=== PATIENT | male | born 1980 | race Caucasian/White ===

== ENCOUNTER 2021-02-18 19:48 | Inpatient (IN) | payer SELFPAY ==
[~2021-02-18] VITALS: Ht 182.9 cm; Wt 87.5 kg
--- NOTE | 2021-02-18 19:50 | NUR ---
BIBRA 120 FOR L HIP AND L HAND/ WRIST PAIN S/P FALL FROM SCOOTER. -KO. MULTIPLE ABRASIONS ON BUE, BLE AND SCALP. TDAP NOT UP TO DATE , pt [id number], denies any sob/cp vss ,pending er provider ollie
[2021-02-18] MEDS ORDERED: TDAP [DIPH/PERTUSSIS/TET] 0.5 ML VIAL IM ONE ×2 (20:25→20:30)
[2021-02-18] MEDS ORDERED: TRAMADOL HCL 50 MG TABLET ONE (20:25)
[2021-02-18] MEDS ORDERED: TRAMADOL HCL 50 MG TABLET PO ONE (20:30)
[2021-02-18] MEDS ORDERED: BACI30OI9 TP (20:53)
[2021-02-18] MEDS ORDERED: IBUP-1955 PO (20:53)
[2021-02-18] MEDS ORDERED: TRAM50TA2 PO (20:53)
[2021-02-18] MEDS ORDERED: HYDROMORPHONE 1 MG/1 ML DISP.SYRIN IV ONE ×2 (21:00→23:00)
[2021-02-18] MEDS ORDERED: ONDANSETRON HCL/PF 4 MG/2 ML VIAL IV ONE (21:00)
[2021-02-18 21:15] LABS: BASOPHILS % (AUTO) 0.2 % (0.0-2.0); EOSINOPHILS % (AUTO) 0.2 % (0.0-6.0); HEMATOCRIT 43 % (39-51); HEMOGLOBIN 13.8 g/dL (13.5-17.5); LYMPHOCYTES # (AUTO) 1.3 K/uL (0.8-4.8); LYMPHOCYTES % (AUTO) 9.8 % (20.0-44.0); MEAN CORPUSCULAR HGB CONC 32 g/dl (31.0-36.0); MEAN CORPUSCULAR VOLUME 81 fL (80-96); MONOCYTES # (AUTO) 0.7 K/uL (0.1-1.30); MONOCYTES % (AUTO) 5.5 % (2.0-12.0); NEUTROPHILS % (AUTO) 84.3 % (43.0-81.0); PLATELET COUNT (AUTO) 272 K/uL (150-450); RED BLOOD CELL COUNT(AUTO) 5.36 MIL/uL (4.5-6.0); WHITE BLOOD COUNT (AUTO) 13.1 K/uL (4.3-11.0)
[2021-02-18] MEDS ORDERED: ONDANSETRON HCL/PF 4 MG/2 ML VIAL ONE (21:15)
[2021-02-18] MEDS ORDERED: HYDROMORPHONE 1 MG/1 ML DISP.SYRIN ONE ×4 (21:16→23:25)
[2021-02-18 21:25] LABS: CALCIUM, SERUM 9.1 mg/dL (8.5-10.1); CREATININE 1.2 mg/dL (0.6-1.3); POTASSIUM 3.6 mmol/L (3.5-5.1)
--- NOTE | 2021-02-18 21:28 | NUR ---
dilaudid 1mg cap broke and med spilled on floor. wasted dose with charge nurse
--- NOTE | 2021-02-18 22:04 | NUR ---
CALLED [facility], ALLIE SALTER SPEAKING WITH ALLIE ALCOCER
--- NOTE | 2021-02-18 22:14 | NUR ---
CALLED [facility], PAGED MOHSEN FOR ADMISSION
--- NOTE | 2021-02-18 22:15 | NUR ---
MOHSEN SPEAKING WITH ALLIE BUTLER
--- NOTE | 2021-02-18 22:16 | NUR ---
Ilya reyna in [facility] - 02/18/21 at 2216 by JIMBO BED [id number]
--- NOTE | 2021-02-18 22:50 | NUR ---
CALLED FOR REPORT. WILL CALL BACK
--- NOTE | 2021-02-18 23:22 | NUR ---
REPORT GIVEN TO SETH TORRES FOR MINERVA
[2021-02-18] MEDS ORDERED: HYDROMORPHONE INJ 2 MG/ML DISP.SYRIN IV ONE (23:30)
--- NOTE | 2021-02-18 23:30 | NUR ---
ROOM CHANGE TO 311-2
--- NOTE | 2021-02-18 23:57 | NUR ---
TRANSFERRED TO THIRD FLOOR IN STABLE CONDITION UNDER ACLS
[2021-02-19] VITALS: BP 127/73
[2021-02-19] MEDS ORDERED: MAG HYDROX/AL HYDROX/SIMETH 30 ML UDC PO PRN
[2021-02-19] MEDS ORDERED: MAGNESIUM HYDROXIDE 30 ML UDC PO PRN
[2021-02-19] MEDS ORDERED: Z GUARD REMEDY 2 OZ OINT TP PRN
[2021-02-19] MEDS ORDERED: ZOLPIDEM TARTRATE 5 MG TABLET PO PRN
[2021-02-19] MEDS ORDERED: ONDANSETRON HCL/PF 4 MG/2 ML VIAL IVP PRN
--- NOTE | 2021-02-19 00:07 | NUR ---
pt transported to 3rd floor
[2021-02-19] MEDS: IV D5/0.45 NACL 1,000 ML IV PRN ×2 (00:21→17:28)
--- NOTE | 2021-02-19 01:40 | NUR ---
MS/TELE/RN RECEIVED PATIENT AT 0000 FROM [facility]. PATIENT WAS VERY SLEEPY BUT COMFORTABLE, NO SIGNS OF DISTRESS NOTED. UNABLE TO OBTAIN ADMISSION ASSESSMENT PATIENT WAS VERY SLEEP AND DOES NOT ANSWER TO QUESTION, SOME INFORMATIONS WERE OBTAINED FROM PATIENT'S CHART. FALL PRECAUTIONS PER PROTOCOL INSTITUTED, WILL MONITOR.
[2021-02-19] MEDS: MORPHINE SULFATE INJ 2 MG/ML DISP.SYRIN IV PRN (02:43)
[2021-02-19] MEDS: HYDROMORPHONE 1 MG/1 ML DISP.SYRIN IV PRN ×3 (06:01→21:00)
[2021-02-19 06:53] LABS: BASOPHILS % (AUTO) 0.3 % (0.0-2.0); EOSINOPHILS % (AUTO) 0.1 % (0.0-6.0); HEMATOCRIT 40 % (39-51); HEMOGLOBIN 13.2 g/dL (13.5-17.5); LYMPHOCYTES # (AUTO) 1.7 K/uL (0.8-4.8); LYMPHOCYTES % (AUTO) 13.6 % (20.0-44.0); MEAN CORPUSCULAR HGB CONC 33 g/dl (31.0-36.0); MEAN CORPUSCULAR VOLUME 81 fL (80-96); MONOCYTES # (AUTO) 1.1 K/uL (0.1-1.30); MONOCYTES % (AUTO) 8.6 % (2.0-12.0); NEUTROPHILS # (AUTO) 9.9 K/uL (1.8-8.9); NEUTROPHILS % (AUTO) 77.4 % (43.0-81.0); PLATELET COUNT (AUTO) 229 K/uL (150-450); RED BLOOD CELL COUNT(AUTO) 5.01 MIL/uL (4.5-6.0); WHITE BLOOD COUNT (AUTO) 12.8 K/uL (4.3-11.0)
[2021-02-19 07:21] LABS: CALCIUM, SERUM 8.7 mg/dL (8.5-10.1); CREATININE 0.9 mg/dL (0.6-1.3); MAGNESIUM 2.1 mg/dL (1.8-2.4); PHOSPHORUS 4.2 mg/dL (2.5-4.9); POTASSIUM 3.9 mmol/L (3.5-5.1)
[2021-02-19] MEDS: PANTOPRAZOLE 40 MG TABLET.DR PO SCH (07:30)
--- NOTE | 2021-02-19 07:40 | NUR ---
MS/TELE/RN PATIENT IS AWAKE, COMFORTABLE, NO DISTRESS NOTED, ALL NEEDS ATTENDED AT THIS TIME, ENDORSED TO NEXT RN FOR MINERVA.
[2021-02-19 08:00] VITALS: BP 137/77
--- NOTE | 2021-02-19 10:00 | NUR ---
NPO THIS AM,VS STABLE.PLANS FOR SURGERY.HESITANT AT FIRST TO SIGN PAPERS,CALLING FRIEND FIRST.SURGEON IN TO TALK WITH PT. SEVERAL TIMES.
[2021-02-19] MEDS ORDERED: ANESTHESIA TRAY IN PYXIS 1 EA TRAY MC ONE (12:00)
[2021-02-19] MEDS ORDERED: POLYMYXIN B SULFATE 500,000 UNITS ONE (12:00)
[2021-02-19] MEDS ORDERED: BUPIVACAINE 0.5 % PF 150 MG/30 ML VIAL ONE (12:01)
[2021-02-19] MEDS ORDERED: HYDROMORPHONE 1 MG/1 ML DISP.SYRIN IV ONE (12:30)
--- NOTE | 2021-02-19 13:00 | NUR ---
bony ok'd one time inj. for pain.vs taken 132/79,hrate 89,t 99,rr 16.pox99%
--- NOTE | 2021-02-19 13:30 | NUR ---
MED. FOR LT HIP PAIN SEVERAL TIMES PRE-OP.VOIDED.TO OR AT THIS TIME.
[2021-02-19] MEDS ORDERED: HYDROMORPHONE INJ 2 MG/ML DISP.SYRIN ONE (13:57)
[2021-02-19] MEDS ORDERED: ROCURONIUM BROMIDE 50 MG/5 ML ONE ×2 (13:57)
[2021-02-19] MEDS ORDERED: MIDAZOLAM HCL 2 MG/2ML VIAL ONE (13:57)
[2021-02-19] MEDS ORDERED: TRANEXAMIC ACID 3,000 MG in SODIUM CHLORIDE IRRIG SOLUTION 70 ML IR ONE (15:00)
[2021-02-19] MEDS ORDERED: HYDROCODONE/APAP 5/325MG TABLET PO PRN ×2 (17:00)
[2021-02-19] MEDS ORDERED: DOCUSATE SODIUM 100 MG CAPSULE PO PRN (17:00)
--- NOTE | 2021-02-19 17:40 | NUR ---
RETURNED TO RM. VS TAKEN PUMP STOCKINGS ON SIDE RAILS UP CALL JARVIS WITHIN REACH.DRSG LT HIP DRY AND INTACT. ICE PACK IN PLACE.HOB SL ELEVATED.IV INFUSING,,NO COMPLAINTS,A LITTLE DROWSY.
--- NOTE | 2021-02-19 18:00 | NUR ---
NO VOID YET.VS STABLE.
[2021-02-19 20:00] VITALS: BP 117/75
--- NOTE | 2021-02-19 20:42 | NUR ---
SMS/TELE/RN DURING INITIAL SHIFT ROUNDING, RECEIVED PATIENT IN BED EATING, COMFORTABLE, NO C/O PAIN, NO SIGNS OF DISTRESS NOTED, CALL LIGHT IN REACH. WILL MONITOR.
[2021-02-19] MEDS: ANCEF 1 GM/50 ML D5W IV SCH (22:20)
[2021-02-20] MEDS: HYDROMORPHONE 1 MG/1 ML DISP.SYRIN IV PRN ×3 (01:37→09:26)
[2021-02-20] MEDS: ANCEF 1 GM/50 ML D5W IV SCH (05:59)
[2021-02-20] MEDS: IV D5/0.45 NACL 1,000 ML IV PRN (05:59)
--- NOTE | 2021-02-20 06:18 | NUR ---
MS/TELE/RN PATIENT HAS ONLY 200 MLS URINE OUTPUT SINCE 1899, BLADDER SCAN DONE, SHOWED 563 MLS, OBTAINED ORDER FROM DR. CONNOLLY FOR STRAIGHT CATH X 1.
[2021-02-20 06:39] LABS: BASOPHILS % (AUTO) 0.2 % (0.0-2.0); EOSINOPHILS % (AUTO) 0.2 % (0.0-6.0); HEMATOCRIT 34 % (39-51); HEMOGLOBIN 11.7 g/dL (13.5-17.5); LYMPHOCYTES # (AUTO) 1.8 K/uL (0.8-4.8); LYMPHOCYTES % (AUTO) 16.2 % (20.0-44.0); MEAN CORPUSCULAR HGB CONC 34 g/dl (31.0-36.0); MEAN CORPUSCULAR VOLUME 80 fL (80-96); MONOCYTES # (AUTO) 1.1 K/uL (0.1-1.30); MONOCYTES % (AUTO) 9.3 % (2.0-12.0); NEUTROPHILS # (AUTO) 8.4 K/uL (1.8-8.9); NEUTROPHILS % (AUTO) 74.1 % (43.0-81.0); PLATELET COUNT (AUTO) 204 K/uL (150-450); WHITE BLOOD COUNT (AUTO) 11.3 K/uL (4.3-11.0)
[2021-02-20 06:50] LABS: CALCIUM, SERUM 7.7 mg/dL (8.5-10.1); POTASSIUM 3.7 mmol/L (3.5-5.1)
--- NOTE | 2021-02-20 06:52 | NUR ---
MS/TELE/RN STRAIGHT CATH DONE, 700 MLS PAWAN COLOR, CLEAR URINE OUTPUT NOTED.
--- NOTE | 2021-02-20 07:10 | NUR ---
MS RN NOTE RECEIVED PATIENT ON BED ASLEEP BUT EASILY AROUSABLE WITH NO SIGNS OF DISTESS. PATIENT IS ALWERT AND ORIENTED X 4. PATIENT WITH CAST ON THE LEFT ARM WITH GOOD CIRCULATION AND SENSATION INTACT ON THE FINGERS. PATIENT WITH DRESSING ON THE LEFT HIP, DRY AND INTACT. COMFORT MEASURES PROVIDED. ENCOURAGED TO DO DEEP BREATHING EXERCISES. WITH IV ACCESS ON THE RIGHT AC G 18 WITH D5 1/2 NS RUNNING AT 75ML/HR. WITH ABDUCTION PILLOW IN BETWEEN LEGS. SAFETY MEASURES ENSURED WITH BED AT LOW POSITION AND LOCKED. CALL LIGHT WITHIN REACH AT ALL TIMES. WILL CONTINUE TO MONITOR PATIENT.
[2021-02-20] MEDS: MORPHINE SULFATE INJ 2 MG/ML DISP.SYRIN IV PRN ×3 (07:41→20:08)
[2021-02-20 08:00] VITALS: BP 111/73
[2021-02-20] MEDS: ENOXAPARIN SODIUM 40 MG/0.4 ML DISP.SYRIN SQ SCH (09:21)
[2021-02-20] MEDS: PANTOPRAZOLE 40 MG TABLET.DR PO SCH (09:25)
[2021-02-20] MEDS: ACETAMINOPHEN 325 MG TABLET PO PRN ×2 (09:26→20:08)
--- NOTE | 2021-02-20 11:00 | NUR ---
MS RN NOTE SEEN BY USMAN CALDERON AND DR. JONAS. WILL CONTINUE TO MONITOR PATIENT.
--- NOTE | 2021-02-20 13:00 | NUR ---
MS RN NOTE PATIENT SEEN BY PT. ABLE TO TOLERATE THERAPY. ABLE TO AMBULATE. WILL CONTINUE TO MONITOR PATIENT.
[2021-02-20 16:00] VITALS: BP 140/76
--- NOTE | 2021-02-20 19:10 | NUR ---
MS RN CLOSING NOTE PATIENT ON BED ASLEEP BUT EASILY AROUSABLE WITH NO SIGNS OF DISTESS. PATIENT IS ALERT AND ORIENTED X 4. PATIENT WITH CAST ON THE LEFT ARM WITH GOOD CIRCULATION AND SENSATION INTACT ON THE FINGERS. PATIENT WITH DRESSING ON THE LEFT HIP, DRY AND INTACT. COMFORT MEASURES PROVIDED. PATIENT NOT COMPLAINING OF PAIN AT THIS TIME. ENCOURAGED TO DO DEEP BREATHING EXERCISES. WITH IV ACCESS ON THE RIGHT AC G 18 WITH D5 1/2 NS RUNNING AT 75ML/HR. SAFETY MEASURES ENSURED WITH BED AT LOW POSITION AND LOCKED. ENDORSED TO NEXT SHIFT FOR CONTINUITY OF CARE.
[2021-02-20 20:00] VITALS: BP 129/70
--- NOTE | 2021-02-20 20:15 | NUR ---
Patient is A&Ox4. Slight temp of 100.6 will give PRN Tylenol and recheck. C/o 10/ pain given PRN morphine. will f/u for effect. Reminded patient not to cross legs and use abduction pillow as much as possible.
[2021-02-20] MEDS: oxyCODONE/APAP (5/325 MG) 1 UDTAB TABLET PO PRN (22:20)
[2021-02-21] MEDS: MORPHINE SULFATE INJ 2 MG/ML DISP.SYRIN IV PRN ×2 (01:18→05:53)
[2021-02-21] MEDS: oxyCODONE/APAP (5/325 MG) 1 UDTAB TABLET PO PRN ×4 (03:20→19:47)
[2021-02-21 06:17] LABS: BASOPHILS % (AUTO) 0.3 % (0.0-2.0); EOSINOPHILS % (AUTO) 0.4 % (0.0-6.0); HEMATOCRIT 36 % (39-51); HEMOGLOBIN 11.8 g/dL (13.5-17.5); LYMPHOCYTES # (AUTO) 1.9 K/uL (0.8-4.8); LYMPHOCYTES % (AUTO) 16.1 % (20.0-44.0); MEAN CORPUSCULAR HGB CONC 33 g/dl (31.0-36.0); MEAN CORPUSCULAR VOLUME 81 fL (80-96); MONOCYTES # (AUTO) 1.5 K/uL (0.1-1.30); MONOCYTES % (AUTO) 12.9 % (2.0-12.0); NEUTROPHILS # (AUTO) 8.1 K/uL (1.8-8.9); NEUTROPHILS % (AUTO) 70.3 % (43.0-81.0); PLATELET COUNT (AUTO) 196 K/uL (150-450); WHITE BLOOD COUNT (AUTO) 11.5 K/uL (4.3-11.0)
[2021-02-21 06:34] LABS: CALCIUM, SERUM 8.3 mg/dL (8.5-10.1); CREATININE 0.8 mg/dL (0.6-1.3); MAGNESIUM 2.2 mg/dL (1.8-2.4); POTASSIUM 3.7 mmol/L (3.5-5.1)
--- NOTE | 2021-02-21 07:08 | NUR ---
Patient stated the pain was 11/10 at beginning of shift and said he needs better pain management. Patient Contact Dawson also called to make sure patient would get proper pain management. PRN Oxycodone used with PRN morphine for breakthrough pain. Patient reports that pain was well managed. No other issues overnight. VSS.
--- NOTE | 2021-02-21 07:35 | NUR ---
MS/RN OPENING NOTES RECEIVED PATIENT AWAKE ALERT AND ORIENTED X 4. PATIENT IS ON ROOM AIR SATURATING WELL. PATIENT IN NO APPARENT RESPIRATORY DISTRESS NOTED. NO COMPLAINED OF PAIN NOTED AT THIS TIME. WILL CONTINUE TO MONITOR.
[2021-02-21] MEDS: PANTOPRAZOLE 40 MG TABLET.DR PO SCH (07:45)
[2021-02-21 08:18] VITALS: BP 114/72
[2021-02-21] MEDS: ENOXAPARIN SODIUM 40 MG/0.4 ML DISP.SYRIN SQ SCH (09:07)
[2021-02-21] MEDS: HYDROMORPHONE 1 MG/1 ML DISP.SYRIN IV PRN ×4 (09:52→22:16)
[2021-02-21] MEDS: ACETAMINOPHEN 325 MG TABLET PO PRN (12:28)
--- NOTE | 2021-02-21 12:29 | NUR ---
MS/RN NOTES PATIENT REQUEST FOR TYLENOL ORAL FOR HEADACHE AND WAS GIVEN. WILL CONTINUE TO MONITOR.
[2021-02-21 16:01] VITALS: BP 120/74
[2021-02-21] MEDS: ENSURE ENLIVE 237 ML LIQUID (VANILLA) PO SCH (17:30)
--- NOTE | 2021-02-21 19:27 | NUR ---
MS/RN CLOSING PATIENT IS ON BED ALERT AND ORIENTED X4. PATIENT IS ON ROOM AIR SATURATION 98%. PATIENT IN NO APPARENT RESPIRATORY DISTRESS NOTED. NO COMPLAINED OF PAIN NOTED AT THIS TIME. SEEN AND EXAMINED BY MD WITH ORDERS MADE AND CARRIED OUT ALL DUE MEDICATIONS WAS GIVEN. IV ACCESS AT RIGHT AC #18G PATENT AND INTACT. SAFETY PRECAUTION WAS IN PLACED, BED IN LOWEST POSITION AND LOCKED X2. CALL LIGHT WITHIN REACH. PATIENT IS ASKING FOR PAIN MEDICATIONS THAT IS NOT ON DUE YET, PATIENT IS MAD AND TALKING IN THE PHONE THAT I DID NOT GIVE HIS PAIN MEDICATION, KEESHA JONAS DNP WAS AWARE THAT THE PATIENT WANT TO TALK HIM REGARDING HIS PAIN MEDICATIONS. WILL ENDORSED TO EYE CARE PROFESSIONAL FOR MINERVA.
--- NOTE | 2021-02-21 19:30 | NUR ---
RN OPENING NOTE PATIENT IN BED, AWAKE. PATIENT COMPLAINS OF 10/10 PAIN AT THIS TIME, WILL GIVE PAIN MED IF DUE. EDUCATION GIVEN REGARDING DISCHARGE PLANNING AND POST OP PAIN CONTROL. PATIENT IS ABLE TO MAKE NEEDS KNOWN. A/O X 4. PATIENT ON RA BREATHING EVEN AND UNLABORED. RAC 18 G PATENT AND INTACT. SAFETY MEASURES IN PLACE: BED LOCKED AND IN LOWEST POSITION, CALL LIGHT WITHIN REACH, SIDE RAILS UP. WILL MONITOR PATIENT CLOSELY.
--- NOTE | 2021-02-21 19:47 | NUR ---
BRIAN NOTE PATIENT GIVEN DILAUDID 1 MG FOR PAIN 04/13 ON HIS KNEES AND HIPS. WILL REASSESS MED EFFECTIVENESS. Addendum: 02/22/21 at 024 by APRIL ROBLES RN PERCOCET Addendum: 02/22/21 at 024 by APIRL ROBLES RN WRONG TIME.
[2021-02-21 20:00] VITALS: BP 121/81
--- NOTE | 2021-02-21 22:16 | NUR ---
RN NOTE PATIENT GIVEN DILAUDID 1 MG FOR PAIN 10/10 ON HIS KNEES AND HIPS. WILL REASSESS MED EFFECTIVENESS.
--- NOTE | 2021-02-22 02:15 | NUR ---
RN NOTE PATIENT SLEEPING AT THIS TIME, NOT IN ANY APPARENT DISTRESS.
[2021-02-22] MEDS: oxyCODONE/APAP (5/325 MG) 1 UDTAB TABLET PO PRN ×4 (03:41→22:29)
--- NOTE | 2021-02-22 03:41 | NUR ---
PERCOCET GIVEN FOR PAIN 10/10 ON HIP AND KNEES. EDUCATED PATIENT THAT THESE MEDICATIONS ARE PRN OR NEEDED MEDICATIONS AND NOT A ROUTINE EVERY 2 HRS PAIN MEDICINE. PATIENT WAS SLEEPING FROM 2300 UNTIL 03:30.
--- NOTE | 2021-02-22 06:00 | NUR ---
PATIENT SLEEPING AT THIS TIME.
[2021-02-22] MEDS: HYDROMORPHONE 1 MG/1 ML DISP.SYRIN IV PRN ×3 (06:42→21:28)
[2021-02-22 06:58] LABS: BASOPHILS % (AUTO) 0.4 % (0.0-2.0); EOSINOPHILS % (AUTO) 1.2 % (0.0-6.0); HEMATOCRIT 34 % (39-51); HEMOGLOBIN 11.3 g/dL (13.5-17.5); LYMPHOCYTES # (AUTO) 1.4 K/uL (0.8-4.8); LYMPHOCYTES % (AUTO) 14.3 % (20.0-44.0); MEAN CORPUSCULAR HGB CONC 33 g/dl (31.0-36.0); MEAN CORPUSCULAR VOLUME 80 fL (80-96); MONOCYTES % (AUTO) 10.3 % (2.0-12.0); NEUTROPHILS # (AUTO) 7.2 K/uL (1.8-8.9); NEUTROPHILS % (AUTO) 73.8 % (43.0-81.0); PLATELET COUNT (AUTO) 216 K/uL (150-450); RED BLOOD CELL COUNT(AUTO) 4.24 MIL/uL (4.5-6.0); WHITE BLOOD COUNT (AUTO) 9.8 K/uL (4.3-11.0)
[2021-02-22 07:24] LABS: CALCIUM, SERUM 8.5 mg/dL (8.5-10.1); CREATININE 0.8 mg/dL (0.6-1.3); POTASSIUM 3.3 mmol/L (3.5-5.1)
--- NOTE | 2021-02-22 07:30 | NUR ---
RN NOTE PATIENT BREATHING EVEN AND UNLABORED, NOT IN ANY APPARENT DISTRESS. SAFETY MEASURES IN PLACE: ENDORSED TO DAY SHIFT NURSE FOR MINERVA.
[2021-02-22 08:09] VITALS: BP 111/74
[2021-02-22] MEDS: ENSURE ENLIVE 237 ML LIQUID (VANILLA) PO SCH ×2 (08:19→17:03)
[2021-02-22] MEDS: PANTOPRAZOLE 40 MG TABLET.DR PO SCH (08:22)
[2021-02-22] MEDS: ENOXAPARIN SODIUM 40 MG/0.4 ML DISP.SYRIN SQ SCH (08:24)
[2021-02-22] MEDS ORDERED: POTASSIUM CHLORIDE 20 MEQ TAB.PRT.SR PO SCH (09:30)
--- NOTE | 2021-02-22 10:00 | NUR ---
MS/RN NOTES- REFUSED PT PATIENT REFUSED PT, KEEPS ASKING FOR PAIN MEDS. RN AND DR. JONAS EXPLAINED TO THE PATIENT THAT PAIN MEDS HAS A SCHEDULED TIME. RN GAVE PATIENT PERCOCET DOSE AN HOUR AGO AND PATIENT IS ASKING FOR ANOTHER DOSE. PATIENT ALSO IS REFUSING PHYSICAL THERAPY. EXPLAINED TO THE PATIENT THE BENEFITS OF PT BUT PATIENT REFUSED. PATIENT IS UPSET THAT HE CANNOT HAVE HIS DILAUDID AND PERCOCET DOSE. WILL CONTINUE TO MONITOR
[2021-02-22] MEDS ORDERED: MAGNESIUM HYDROXIDE 30 ML UDC PO PRN (12:30)
[2021-02-22] MEDS: DOCUSATE SODIUM 100 MG CAPSULE PO SCH ×2 (12:56→18:00)
[2021-02-22 16:01] VITALS: BP 119/77
--- NOTE | 2021-02-22 18:50 | NUR ---
MSRN CLOSING NOTE PATIENT IN BED, AWAKE. PATIENT IS ABLE TO MAKE NEEDS KNOWN. A/O X 4. NO PAIN REPORTED AT THIS TIME. PATIENT ON RA BREATHING EVEN AND UNLABORED. RAC 18 G PATENT AND INTACT ON SALINE LOCK. SAFETY MEASURES IN PLACE: BED LOCKED AND IN LOWEST POSITION, CALL LIGHT WITHIN REACH, SIDE RAILS UP. WILL ENDORSE TO THE NEXT SHIFT FOR MINERVA.
--- NOTE | 2021-02-22 19:10 | NUR ---
MS RN OPENING NOTES: RECEIVED PATIENT IN BED, AWAKE, A/O X4. NO S/S OF DISTRESS NOTED. CALL LIGHT WITHIN REACH. BED IN LOWEST AND LOCKED POSITION. WITH URINAL AT THE BEDSIDE. PATIENT REQUESTED A BEDBATH, RONNA BEY MADE AWARE.
--- NOTE | 2021-02-22 19:10 | NUR ---
MS TORRES OPENING NOTES: RECEIVED PATIENT IN BED, AWAKE, A/O X4. NO S/S OF DISTRESS NOTED. CALL LIGHT WITHIN REACH. BED IN LOWEST AND LOCKED POSITION. BED ALARM ON. URINAL AT THE BEDSIDE. FAMILY MEMBERS AT THE BEDSIDE. SCD'S TURNED ON. INSTRUCTED TO CALL FOR ASSISTANCE WHEN OOB, PATIENT VERBALIZED UNDERSTANDING. Addendum: 02/22/21 at 2013 by LYSSA RIVAS RN WRONG PATIENT DOCUMENTATION
[2021-02-22 20:00] VITALS: BP 98/66
--- NOTE | 2021-02-22 22:15 | NUR ---
PATIENT STATES THAT PAIN LEVEL 7/10 IS TOLERABLE, BUT WANTS TO TAKE THE PERCOCET PO WHEN IT'S DUE. PATIENT IS TALKING TO THE PHONE. RESTING COMFORTABLY IN BED.. NOT MOANING.
--- NOTE | 2021-02-22 22:22 | NUR ---
SENT MESSAGES TO DR CONNOLLY RE: PAIN MANAGEMENT, THAT PATIENT STILL HAVING A LOT OF PAIN DESPITE OF CURRENT MEDICATIONS, CHARGE NURSE REGIS MADE AWARE.
--- NOTE | 2021-02-22 23:05 | NUR ---
DR CONNOLLY RESPONDED TO [facility] MESSAGE AND SAID THAT PATIENT HAS TO TALK TO THE DAYSHIFT CATERING SOUS CHEF IN THE MORNING REGARDING THE PAIN MANAGEMENT, RELAYED TO THE PATIENT, AND PATIENT SAID IT'S OKAY, CHARGE NURSE MADE AWARE.
--- NOTE | 2021-02-23 00:04 | NUR ---
INFORMED DR CONNOLLY RE: PAIN LEVEL 03/14, HAD PERCOCOET AT 2229, DILAUADID IV IS NOT DUE YET UNTIL 0128.
[2021-02-23] MEDS: HYDROMORPHONE 1 MG/1 ML DISP.SYRIN IV PRN ×2 (00:35→06:00)
[2021-02-23] MEDS: oxyCODONE/APAP (5/325 MG) 1 UDTAB TABLET PO PRN ×2 (03:21→09:27)
--- NOTE | 2021-02-23 03:25 | NUR ---
ABDUCTION PILLOW PLACED BETWEEN THE LEGS
[2021-02-23 08:00] VITALS: BP 135/79
[2021-02-23] MEDS: ENSURE ENLIVE 237 ML LIQUID (VANILLA) PO SCH ×2 (08:00→17:00)
[2021-02-23] MEDS: ENOXAPARIN SODIUM 40 MG/0.4 ML DISP.SYRIN SQ SCH (09:24)
[2021-02-23] MEDS: METHOCARBAMOL (500MG) 500 MG TABLET PO SCH ×3 (09:27→17:00)
[2021-02-23] MEDS: PANTOPRAZOLE 40 MG TABLET.DR PO SCH (09:27)
[2021-02-23] MEDS: DOCUSATE SODIUM 100 MG CAPSULE PO SCH ×2 (09:27→17:00)
[2021-02-23] MEDS ORDERED: ASPI-992 PO (16:18)
[2021-02-23] MEDS ORDERED: OXYC-128 PO ×5 (16:18→18:18)
[2021-02-23] MEDS ORDERED: METH-647 PO (16:18)
--- NOTE | 2021-02-23 18:41 | NUR ---
PT REFUSING TO LEAVE. CONSTANT BACK AND FORTH ON PLACEMENT BETWEEN B&C AND HOME WITH FRIEND. WHEN DECIDED ON PLACEMENT PROCEEDED TO CHANGE BACK AND FORTH ON PHARMACY FOR MEDICATION ONLINE ADVERTISING ANALYST, EXPLAINED TO PT ABOUT MEDICATION PICKUP, ADAMANT ON STAYING UNTIL PHARMACY CONFIRMED, FAMILY JERE, CASE MANAGEMENT AWARE AND MD AWARE
[2021-02-24] MEDS ORDERED: PANT40TA2 PO (07:23)
== END 2021-02-23 18:55 | disposition home health service (06) | DRG 522 ==
LOC: ER 19:50 → MED 22:44
PROVIDERS: ADMIT Student in an Organized Health Care Education/Training Program; ATTEND Nurse Practitioner Acute Care
PROC: 0SRB0JZ Replacement of Left Hip Joint with Synthetic Substitute, Open Approach (ICD-10-PCS; principal; 2021-02-19)
DX: S72.012A Unspecified intracapsular fracture of left femur, initial encounter for closed fracture (principal); S62.317A Displaced fracture of base of fifth metacarpal bone, left hand, initial encounter for closed fracture; S62.142A Displaced fracture of body of hamate [unciform] bone, left wrist, initial encounter for closed fracture; Z87.891 Personal history of nicotine dependence; D72.829 Elevated white blood cell count, unspecified; V00.831A Fall from motorized mobility scooter, initial encounter; Y93.89 Activity, other specified; S30.850A Superficial foreign body of lower back and pelvis, initial encounter; E87.6 Hypokalemia; Y92.89 Other specified places as the place of occurrence of the external cause; Z20.822 Contact with and (suspected) exposure to COVID-19
CPT/HCPCS: 36415; 71045-TC; 72170-TC; 73130-TC; 73200-TC; 73502; 73700-TC; 80048-TC; 83735-TC; 84100-TC; 85025-TC; 85730-TC; 86850-TC; 87081-TC; 88305-TC; 88311-TC; 90715; 97110-TC; 97112-TC; 97116-TC; 97530-TC; A4217; A6209; A6403; C1776; C9803; G0378; J0690; J1100; J1170; J1650; J1885; J2250; J2270; J2405; J2704; J3490; J7030; J7060